=== PATIENT | female | born 1960 | race Caucasian/White ===

== ENCOUNTER 2020-07-25 07:55 | Emergency (ER) | payer OTHER ==
[~2020-07-25] VITALS: Ht 157.5 cm; Wt 97.2 kg
[2020-07-25] MEDS ORDERED: SYNTHROID25 MCG PO (08:28)
[2020-07-25] MEDS ORDERED: IBUPROFEN200 MG PO (08:28)
[2020-07-25] MEDS ORDERED: CHLORTHALIDONE25 MG PO (08:28)
[2020-07-25] MEDS ORDERED: ACETAMIN500 M2 PO (08:29)
[2020-07-25 10:00] VITALS: BP 123/74
[2020-07-25] MEDS ORDERED: PROTONIX20 M1 PO (10:15)
== END 2020-07-25 10:18 | disposition home or self-care (01) | DRG 556 ==
LOC: ED 07:55
DX: M25.562 Pain in left knee (principal); M17.12 Unilateral primary osteoarthritis, left knee; I10 Essential (primary) hypertension; E03.9 Hypothyroidism, unspecified; X50.0XXA Overexertion from strenuous movement or load, initial encounter; Y93.89 Activity, other specified; Y92.89 Other specified places as the place of occurrence of the external cause; Y99.0 Civilian activity done for income or pay
CPT/HCPCS: L1830